=== PATIENT | male | born 1990 | race Caucasian/White ===

== ENCOUNTER 2018-08-15 20:32 | Emergency (ER) | payer OTHER, SELFPAY ==
[2018-08-15 20:33] VITALS: BP 157/89; PULSE 84; RESP 18; TEMP 36.5; O2SAT 98; BMI 37.0
--- NOTE | 2018-08-15 20:42 | EKG12_ITS ---
Test Reason : Blood Pressure : / mmHG Vent. Rate : 080 BPM Atrial Rate : 080 BPM P-R Int : 136 ms QRS Dur : 096 ms QT Int : 368 ms P-R-T Axes : 036 011 025 degrees QTc Int : 424 ms Normal sinus rhythm Normal ECG Confirmed by BYRON AGEE, JACKELIN ([id number]), assistant film editor OVIDIO GUSTAFSON ([id number]) on 08/17/2018 2:41:00 PM Referred By: KRISHAN Confirmed By:JACKELIN MATTHEWS MD
--- NOTE | 2018-08-15 20:43 | RAD_ITS ---
STUDY: X-RAY CHEST REASON FOR EXAM: Male, 28 years old. Flutter. TECHNIQUE: Portable chest. COMPARISON: None. FINDINGS: The lungs are clear and expanded. There is no demonstrated pleural abnormality. Normal size heart. Normal mediastinum and balaji. Normal visualized pulmonary arteries. Normal visualized aortic arch and descending thoracic aorta. Normal visualized thoracic spine. Normal visualized ribs, clavicles, and shoulders. There is no demonstrated abnormality of the visualized soft tissue structures of the upper abdomen. RAD/Chest 1 View (Portable) IMPRESSION: Normal x-ray examination of the chest. Electronically Signed: Yamini Valerio MD at 21:40 EST Tel , Service support ,
[2018-08-15 20:46] VITALS: BP 145/72; PULSE 77; RESP 18; O2SAT 98
[2018-08-15] MEDS: Aspirin 81 MG TAB.CHEW 324 MG PO (21:00)
--- NOTE | 2018-08-15 21:07 | ED.VISSUMM ---
- ER Visit Summary Date of Service: 08/15/18 Chief Complaint: [] Palpitations on and off for a week History of Present Illness: The patient is a 28 M [] has a history of palpitations and irregular heartbeat since he was a youth, he indicates he had a stress test and echogram when he was in the teenage years at [facility] he was told he had irregular heartbeat that was intermittent he was not required any medications or any further therapies He has for the last week he has noticed a sense of palpitations he has not taken his heart rate he does not get sick with the palpitations he has had no fever no cough no chest pain numbness weakness or paresthesias nothing triggers him nothing makes them go away the last for a very short period of time, he has no history of thyroid disorder anemia and no history of MO PE DVT or other cardiovascular history in fact he denies any past history of any kind except as above Physical Examination: [] 140/70 heart rate 80 sinus rhythm monitor General, no distress resting comfortably HEENT is generally unremarkable The neck is supple no adenopathy Cardiovascular, regular rate and rhythm Lungs, clear bilateral Abdomen, soft nontender Extremities, no clubbing cyanosis or edema Neurologic, awake alert answering questions appropriately moving all 4 extremities Given his complaint screening labs are obtained chest x-ray EKG shows a sinus rhythm nothing acute Test Results: [] Emergency Department Course and Treatment: [] The patient's screening labs and chest x-ray are all generally unremarkable see those reports he is remained in the the monitor with no change in his status sinus rhythm At this time will be instructed follow-up with his outpatient providers return for change in symptoms he understands and agrees this plan Treatment Plan: [] Disposition: [] Home stable Impression: [] Potation's etiology unclear This note was generated with [employer] dictation software. It may contain incorrect words, spelling, and punctuation that were not noted in review of the chart prior to signing ED Disposition - Plan for ED Patient: Chief Complaint: Palpitations Referrals: NOT,DEFINED [NON-STAFF] -
[2018-08-15 21:11] LABS: Absolute Lymphocyte Count 1.71 X10^3/ul (0.83-4.51); Absolute Neutrophil Count 4.4 X10^3/uL (2.0-7.7); Basophil# 0.02 X10^3/uL; Basophil% 0.3 % (0-1); Eosinophil# 0.21 X10^3/uL; Hematocrit 44.4 % (40-54); Hemoglobin 15.2 g/dl (13.0-16.5); Lymphocyte # 1.71 X10^3/ul (4.0); Lymphocyte % 24.8 % (19-41); Mean Corp Hgb Conc 34.2 g/gl (32-36); Mean Corpuscular Hgb 30.6 pg (27.0-32.0); Mean Corpuscular Volume 89.3 fL (80-94); Mean Platelet Vol. 9.1 fl (6.2-12.0); Monocyte# 0.54 X10^3/uL; Monocyte% 7.8 % (0-10); POSITIVE COUNT NO; POSITIVE DIFFERENTIAL NO; POSITIVE MORPHOLOGY NO; Platelet Count 281 K/mm3 (150-450); RBC Distribution Width SD 42.5 fl (35.1-43.9); Red Blood Count 4.97 M/mm3 (4.6-6.2); White Blood Count 6.9 K/mm3 (4.4-11.0)
[2018-08-15 21:34] LABS: Anion Gap 6 (5-15); BUN 17 mg/dL (7-18); BUN/Creat Ratio 16.5 RATIO (10-20); Calcium,Total 8.5 mg/dL (8.5-10.1); Chloride 107 mmol/L (98-107); Creatinine, Serum 1.03 mg/dL (0.70-1.30); EST Glomerular Filtration Rate 90 mL/min (>60); Est Glom Filt Rate - Afr Amer 109 mL/min (>60); Estimated Creatinine Clearance 121.93 ml/min; Glucose 109 mg/dL (74-106); Potassium 3.7 mmol/L (3.5-5.1); Sodium Level 140 mmol/L (136-145)
[2018-08-15 21:41] LABS: T4 Free Direct 1.01 ng/dL (0.76-1.46); Thyroid Stim Hormone (TSH) 1.58 uIU/mL (0.358-3.74)
--- NOTE | 2018-08-15 21:48 | ED.DEP ---
ED Disposition - Plan for ED Patient: Chief Complaint: Palpitations Referrals: NOT,DEFINED [NON-STAFF] - Jay Souza MD [STAFF PHYSICIAN] -
[2018-08-15 21:49] VITALS: BP 137/78; PULSE 85; RESP 20; O2SAT 100
--- NOTE | 2018-08-15 21:49 | ED.DEP ---
ED Disposition - Plan for ED Patient: Chief Complaint: Palpitations Instructions: ED Palpitations Referrals: Jay Souza MD [STAFF PHYSICIAN] - NOT,DEFINED [NON-STAFF] -
== END 2018-08-15 22:15 | disposition home or self-care (01) ==
LOC: ED 21:45
PROVIDERS: Emergency Provider Emergency Medicine
DX: R00.2 Palpitations (principal); Z87.891 Personal history of nicotine dependence
CPT/HCPCS: 71045; 80048; 84439; 84443; 84484; 85025; 93005; 99284; A4216

== ENCOUNTER 2020-03-20 14:48 | Emergency (ER) | payer OTHER, SELFPAY ==
[2020-03-20 14:49] VITALS: BP 141/86; PULSE 112; RESP 16; TEMP 36; O2SAT 98; BMI 41.4
[2020-03-20 15:31] LABS: Bedside Glucose 159 mg/dL (70-110)
--- NOTE | 2020-03-20 15:38 | ED.VIS.GEN ---
History of Present Illness Chief Complaint: Rash Informant: Patient Onset: Weeks - 1.5 Context: Gradual Onset Timing: Continuous Quality: mostly itchy, a little sore in center Location: proximal right thigh Current Severity: Moderate Maximum Severity: Moderate Worsened by: nothing Relieved by: nothing; Rx'd valacyclovir 2d ago, no effect. Associated Symptoms: none Narrative: Patient has had a red itchy rash on his right thigh, he is starting to see a little bit of it on the left one as well. It is a little sore but for the most part he is not having pain. No systemic symptoms. He is not a diabetic. He has had no plant contact this area which is well within his pant line, almost in his inguinal area, he has no symptoms in the inguinal folds or around the scrotum. No rashes elsewhere except for the left thigh which is very very mild. It has been spreading outward, but very slowly. He has had no drainage from anywhere. Past Medical History - Allergies and Home Meds Allergies/Adverse Reactions: Allergies No Known Allergies Allergy (Verified 03/20/20 14:49) Primary Care Physician: Chioma Cruz PA [Primary Care Provider] - Past Medical History: None Smoking Status: Light Smoker (<10/day) Review of Systems General: Denies: Chills, Fever, Sweats Musculoskeletal: Denies: Neck pain, Back pain, Swelling, Extremity Pain Skin: Reports: Rash Neurological: Denies: Headache, Weakness, Numbness Physical Exam Vital Signs/Narrative: Vital Signs Temp Pulse Resp BP Pulse Ox 03/20/20 14:49 96.8 F L 112 H 16 141/86 H 98 Inital Vital Signs reviewed: Yes General: Well nourished, Well developed, Obese, No Acute Distress - Well-appearing, no distress Head: Normocephalic, Atraumatic Extremities: Nontender - Including affected area right thigh, No edema Skin: Normal color, Rash - Right thigh erythematous rash that is nontender, there is some superficial excoriation, it is a large patch around 6 cm in diameter, with some mild surrounding blanching erythema around it, the center patches well-circumscribed, and none of the erythematous area is tender. There is no abscess. There is no discharge. It is somewhat scaly in the center patch. Neurological: Alert, Oriented x3, Cranial nerves II-XII grossly intact, Normal Strength, Normal Sensation Psychological: Normal affect, Normal Mood Diagnostic/Tx/Re-eval - Medical Decision Making I think this is fungal in etiology despite a look of it. He said he went to urgent care 2 days ago and they were scraping the rash and testing him for herpes simplex/zoster and put him on valacyclovir. I do not think that is going to help but the risk is low for taking that so I think is fine for him to finish it since he has it. I would treat him for tinea and have him follow-up with dermatology if it does not get better. I did a blood sugar, it came back at 159 but he just ate before he got here. I attempted to evaluate the area with a Roach lamp, however 1 was not available. Given appropriate prescription and referral. ED Disposition - Plan for ED Patient: Disposition: Home or Assisted Living Diagnosis: Tinea corporis Instructions: ED DERMATITIS Ringworm skin, ED Fungal Skin Infection Tinea Prescriptions: Clotrimazole [Clotrimazole AF] 30 gm TP BID 14 Days #1 cream..g. Transmission Status: Pending to [id number] Referrals: Chioma Cruz PA [Primary Care Provider] - Remy Helms MD [STAFF PHYSICIAN] - 1 Week if not improving
== END 2020-03-20 16:14 | disposition home or self-care (01) ==
PROVIDERS: Emergency Provider Emergency Medicine; PCP Physician Assistant
DX: B35.4 Tinea corporis (principal); F17.200 Nicotine dependence, unspecified, uncomplicated
CPT/HCPCS: 82962; 99282

== ENCOUNTER 2020-08-15 00:43 | Emergency (ER) | payer OTHER, SELFPAY ==
[2020-08-15 00:44] VITALS: BP 139/89; PULSE 108; RESP 16; TEMP 37; O2SAT 97; BMI 41.7
--- NOTE | 2020-08-15 01:01 | ED.DCSUM_ITS ---
History of Present Illness Chief Complaint: Laceration Informant: Patient Narrative: Patient is a 30-year-old male who presents to the emergency department for laceration to his right thumb. He states he was at work whenever he cut it on a knife. The knife was dirty. He works at [employer]. Patient is right-handed at baseline. Not on blood thinners. Bleeding controlled at arrival to the emergency department. He denies any loss of sensation. No loss of range of motion. Laceration is 2 cm and over the pad of the thumb. No other injury noted. Patient states his last tetanus shot was 1 year ago. Past Medical History - Allergies and Home Meds Allergies/Adverse Reactions: Allergies No Known Allergies Allergy (Verified 08/15/20 00:43) Primary Care Physician: Chioma Cruz PA [Primary Care Provider] - Prior records reviewed: Yes Past Medical History: None Smoking Status: Current every day smoker Review of Systems All systems negative except as indicated General: Denies: Chills, Fever ENT: Denies: Sore throat Cardiovascular: Denies: Chest pain Respiratory: Denies: Dyspnea, Cough Gastrointestinal: Denies: Abdominal pain, Nausea, Vomiting Musculoskeletal: Denies: Swelling Skin: Reports: Wounds Hematologic: Denies: Easy bruising, Easy bleeding Physical Exam Vital Signs/Narrative: Vital Signs Temp Pulse Resp BP Pulse Ox 08/15/20 00:44 98.6 F 108 H 16 139/89 H 97 Inital Vital Signs reviewed: Yes General: Well nourished, Well developed Head: Normocephalic, Atraumatic Eyes: Perrl ENT: Moist mucous membranes Neck: Supple, Nontender Cardiovascular: Regular rate, Regular rhythm Respiratory: No distress Abdomen: Soft, Nondistended Extremities: - - 2 cm linear laceration to pad of right thumb. No foreign body appreciated. 1 mm in depth Skin: Normal color, No rash Neurological: Alert Psychological: Normal affect, Normal Mood Diagnostic/Tx/Re-eval - Medical Decision Making Patient presents to the ED for laceration to right thumb. He is up-to-date on tetanus shot. He is in no apparent distress. Bleeding controlled. Wound was cleaned out using chlorhexidine solution and water. This was repaired using Dermabond. He tolerated the procedure well without any apparent complication. He did not have any rebleeding. He is discharged home in stable condition. Warning signs and symptoms for which to return to the ED including have any evidence of infection are reviewed. He understands and is agreeable this plan. All questions answered. ED Disposition - Plan for ED Patient: Disposition: Home or Assisted Living Diagnosis: Laceration of thumb Instructions: ED Laceration, Extremity: Skin Glue Referrals: Chioma Cruz, PA [Primary Care Provider] - As Needed
[2020-08-15 01:28] VITALS: RESP 16
== END 2020-08-15 01:29 | disposition home or self-care (01) ==
PROVIDERS: Emergency Provider Emergency Medicine; PCP Physician Assistant
DX: S61.011A Laceration without foreign body of right thumb without damage to nail, initial encounter (principal); W26.0XXA Contact with knife, initial encounter; F17.200 Nicotine dependence, unspecified, uncomplicated
CPT/HCPCS: 12001; 99282